=== PATIENT | female | born 1990 | race Hispanic/Latino ===

== ENCOUNTER 2019-03-14 19:23 | Emergency (ER) | payer SELFPAY ==
--- NOTE | 2019-03-14 19:38 | Event Note ---
ED Screening Note Date of service: 03/14/19 Time: 19:34 ED Screening Note: This is a 28 y.O. F. that presents to the ER with bilateral ear pain and decreased hearing x 2 days. PMH of nephrotic syndrome and HTN Reports worsening pain for 3 hours. This initial assessment/diagnostic orders/clinical plan/treatment(s) is/are subject to change based on patients health status, clinical progression and re- assessment by fellow clinical providers in the ED. Further treatment and workup at subsequent clinical providers discretion. Patient/guardian urged not to elope from the ED as their condition may be serious if not clinically assessed and managed. Initial orders include:
[2019-03-14] MEDS ORDERED: CATAPRES PO ONE (22:11)
[2019-03-14] MEDS ORDERED: DILAUDID IM ONE (22:11)
[2019-03-14] MEDS ORDERED: ZOFRAN IM ONE (22:11)
--- NOTE | 2019-03-14 22:15 | Emergency Department Report ---
HPI - General Chief Complaint: Earache Time Seen by Provider: 03/14/19 19:34 - HPI HPI: Room 5 The patient is a 28-year-old female presenting with a chief complaint of bilateral ear pain. Patient states for the past 2 days she's had pain in bilateral ears right greater than left. Patient denies any preceding trauma. Patient denies history of fever. Patient states at one point she saw some clear drainage coming from the right ear. ED Past Medical Hx - Past Medical History Previous Medical History?: Yes Hx Hypertension: Yes Hx Renal Disease: Yes (Nephrotic Syndrome) - Surgical History Past Surgical History?: No Additional Surgical History: 2 heart ablations 1996, 2 kidney [id number] - Family History Family history: no significant - Social History Smoking Status: Never Smoker Substance Use Type: None (denies illicit drug use), Alcohol (occasional) - Medications Home Medications: Home Medications Medication Instructions Recorded Confirmed Last Taken Type Amoxicillin/Potassium Clav 1 each PO BID #20 tablet 03/15/19 Unknown Rx [Augmentin 875-125 Tablet] HYDROcodone/APAP 5-325 [[place] 1 - 2 each PO Q6HR PRN #14 tablet 03/15/19 Unknown Rx 5/325] Ibuprofen [Motrin 800 MG tab] 800 mg PO Q8HR PRN #20 tablet 03/15/19 Unknown Rx ED Review of Systems ROS: Stated complaint: EAR PAIN Other details as noted in HPI Constitutional: denies: fever Eyes: denies: eye pain ENT: ear pain, hearing loss Respiratory: no symptoms reported Cardiovascular: denies: chest pain Endocrine: no symptoms reported Gastrointestinal: denies: abdominal pain Genitourinary: denies: dysuria Musculoskeletal: denies: back pain Neurological: denies: abnormal gait Physical Exam - Physical Exam Vital Signs: Vital Signs 03/14/19 03/14/19 03/14/19 19:33 19:45 20:59 Temperature 97.4 F L Pulse Rate 90 104 H Respiratory 20 25 H Rate Blood Pressure 202/154 Blood Pressure 218/135 [Right] O2 Sat by Pulse 99 Oximetry 03/14/19 03/14/19 03/14/19 21:00 21:23 21:30 Temperature Pulse Rate 104 H 90 Respiratory 28 H 22 21 Rate Blood Pressure 182/135 182/135 197/132 Blood Pressure [Right] O2 Sat by Pulse 99 97 98 Oximetry 03/14/19 03/14/19 21:45 22:00 Temperature Pulse Rate 89 99 H Respiratory 16 16 Rate Blood Pressure 182/135 182/131 Blood Pressure [Right] O2 Sat by Pulse 96 Oximetry Physical Exam: GENERAL: The patient is well-developed well-nourished female lying on the stretcher appearing to be in mild discomfort. Slightly hard of hearing HEENT: Normocephalic. Atraumatic. Left TM appears erythematous with possible serous effusion. Right TM appears somewhat opaque. No drainage visualized. There is tenderness to the right mastoid NECK: Supple. No meningitic signs are noted. CHEST/LUNGS: There is no respiratory distress noted. SKIN: There is no rash. There is no edema. There is no diaphoresis. NEURO: The patient is awake, alert, and oriented. The patient is cooperative. The patient has no focal neurologic deficits. The patient has normal speech. Cranial nerves II through XII grossly intact, no drift. No nystagmus noted. No dysmetria noted with [id number] bilaterally MUSCULOSKELETAL: There is no evidence of acute injury. ED Course Vital Signs 03/14/19 03/14/19 03/14/19 19:33 19:45 20:59 Temperature 97.4 F L Pulse Rate 90 104 H Respiratory 20 25 H Rate Blood Pressure 202/154 Blood Pressure 218/135 [Right] O2 Sat by Pulse 99 Oximetry 03/14/19 03/14/19 03/14/19 21:00 21:23 21:30 Temperature Pulse Rate 104 H 90 Respiratory 28 H 22 21 Rate Blood Pressure 182/135 182/135 197/132 Blood Pressure [Right] O2 Sat by Pulse 99 97 98 Oximetry 03/14/19 03/14/19 21:45 22:00 Temperature Pulse Rate 89 99 H Respiratory 16 16 Rate Blood Pressure 182/135 182/131 Blood Pressure [Right] O2 Sat by Pulse 96 Oximetry - Reevaluation(s) Reevaluation #1: 03/15/19 00:13 Patient resting comfortably ED Medical Decision Making - Lab Data Result diagrams: 03/14/19 23:12 Laboratory Tests 03/14/19 03/14/19 23:12 23:12 WBC 11.1 H RBC 4.69 Hgb 12.6 Hct 37.5 MCV 80 MCH 27 L MCHC 34 RDW 13.6 Plt Count 252 Lymph % (Auto) 7.3 L Cooper % (Auto) 5.9 Eos % (Auto) 0.3 Baso % (Auto) 0.5 Lymph # 0.8 L Cooper # 0.7 Eos # 0.0 Baso # 0.1 Seg Neutrophils % 86.0 H Seg Neutrophils # 9.5 H HCG, Qual Negative - Radiology Data Radiology results: report reviewed (CT head), image reviewed (CT head) [facility] [address] [place] [address] Cat Scan Report Signed Patient: WILBERT PATEL MR# : [id number] : 1990 Acct:[id number] Age/Sex: 28 / F ADM Date: 03/14/19 Loc: ED Attending Dr: Ordering Physician: JOVANY SERRANO MD Date of Service: 03/14/19 Procedure(s): CT head/brain wo con Accession Number(s): [id number] cc: JOVANY SERRANO MD CT head/brain wo con INDICATION / CLINICAL INFORMATION: bilateral ear pain, right mastoid pain. TECHNIQUE: All CT scans at this location are performed using CT dose reduction for ALARA by means of automated exposure control. COMPARISON: None available. FINDINGS: No intracranial hemorrhage or abnormal extra-axial fluid collection. The ventricular system and basilar cisterns are normal. No evidence of mass effect. Slight increased density in the right mastoid air cells when compared to the left probably representing a small amount of fluid. No destructive bony changes. IMPRESSION: 1. No acute intracranial abnormalities. 2. Small amount of fluid in the right mastoid sinuses. Signer Name: Raf Etienne MD Signed: 03/14/2019 11:53 PM Workstation Name: [id number] Transcribed By: NISHI Dictated By: Raf Etienne MD Electronically Authenticated By: Raf Etienne MD Signed Date/Time: 03/14/19 5732 DD/ 606 TD/TT: - Differential Diagnosis acute otitis media, mastoiditis, Critical care attestation.: If time is entered above; I have spent that time in minutes in the direct care of this critically ill patient, excluding procedure time. ED Disposition Clinical Impression: Acute otitis media Disposition: DC-01 TO HOME OR SELFCARE Is pt being admited?: No Does the pt Need Aspirin: No Condition: Stable Instructions: Otitis Media (ED) Prescriptions: Amoxicillin/Potassium Clav [Augmentin 875-125 Tablet] 1 each PO BID #20 tablet Ibuprofen [Motrin 800 MG tab] 800 mg PO Q8HR PRN #20 tablet PRN Reason: Pain, Moderate (4-6) HYDROcodone/APAP 5-325 [[place] 5/325] 1 - 2 each PO Q6HR PRN #14 tablet PRN Reason: Pain Referrals: [facility] MD PEPITO [Primary Care Provider] - 3-5 Days GINA KO MD [Staff Physician] - [facility] (Dr Ko is an pecan mallow dipper (ear nose and throat doctor). Please follow up with him for further evaluation) Time of Disposition: 00:14
[2019-03-14 23:30] LABS: Basophils # (Auto) 0.1 K/mm3 (0.0-0.1); Basophils % (Auto) 0.5 % (0.0-1.8); Eosinophils % (Auto) 0.3 % (0.0-4.3); Hematocrit 37.5 % (30.3-42.9); Hemoglobin 12.6 gm/dl (10.1-14.3); Lymphocytes # (Auto) 0.8 K/mm3 (1.2-5.4); Lymphocytes % (Auto) 7.3 % (13.4-35.0); Mean Corpuscular HGB Conc 34 % (30-34); Mean Corpuscular Volume 80 fl (79-97); Monocytes # (Auto) 0.7 K/mm3 (0.0-0.8); Monocytes % (Auto) 5.9 % (0.0-7.3); Platelet Count 252 K/mm3 (140-440); Red Blood Count 4.69 M/mm3 (3.65-5.03); Red Cell Distribution Width 13.6 % (13.2-15.2)
--- NOTE | 2019-03-14 23:57 | Cat Scan Report ---
CT head/brain wo con INDICATION / CLINICAL INFORMATION: bilateral ear pain, right mastoid pain. TECHNIQUE: All CT scans at this location are performed using CT dose reduction for ALARA by means of automated e xposure control. COMPARISON: None available. FINDINGS: No intracranial hemorrhage or abnormal extra-axial fluid collection. The ventricular system and basilar cisterns are normal. No evidence of mass effect. Slight increased density in the right mastoid air cells when compared to the left probably representi ng a small amount of fluid. No destructive bony changes. IMPRESSION: 1. No acute intracranial abnormalities. 2. Small amount of fluid in the right mastoid sinuses. Signer Name: Raf Etienne MD Signed: 03/14/2019 11:53 PM Workstation Name: [id number]
[2019-03-15 00:02] VITALS: BP 159/107
[2019-03-15] MEDS ORDERED: ROCEPHIN IM ONE (00:14)
[2019-03-15] MEDS ORDERED: XYLOCAINE 1% MPF 5 mL INFILTRATI ONE (00:14)
== END 2019-03-15 00:30 | disposition home or self-care (01) ==
LOC: ED 19:23
DX: H66.93 Otitis media, unspecified, bilateral (principal); I10 Essential (primary) hypertension; Z79.899 Other long term (current) drug therapy
CPT/HCPCS: 36415; 70450; 84703; 85025; 96372; 99284; J0696; J1170; J2405